=== PATIENT | female | born 1955 | race Caucasian/White ===

== ENCOUNTER → 2024-04-09 15:35 | Outpatient (REF) | payer MEDICARE, SELFPAY | LOC: ANHLAB 15:35 | PROVIDERS: PCP Family Medicine Adolescent Medicine; Visit Provider Plastic Surgery | DX: C44.619 Basal cell carcinoma of skin of left upper limb, including shoulder (principal); L82.1 Other seborrheic keratosis | CPT/HCPCS: 88305 ==

== ENCOUNTER 2025-01-29 08:17 | Outpatient (CLI) | payer MEDICARE, SELFPAY ==
[2025-01-29 09:38] LABS: Hemoglobin A1C 5.1 % (<5.7)
[2025-01-29 09:51] LABS: Alanine Aminotransferase 25 U/L (6-35); Albumin Level 4.2 g/dL (3.5-5.1); Alkaline Phosphatase 56 U/L (38-126); Anion Gap 6 mmol/L (4-12); Aspartate Amino Transferase 26 U/L (14-36); Bilirubin,Total 1.1 mg/dL (0.2-1.3); Blood Urea Nitrogen 11 mg/dL (7-17); Calcium 9.9 mg/dL (8.4-10.2); Carbon Dioxide 29 mmol/L (22-30); Chloride 103 mmol/L (98-107); Cholesterol 158 mg/dL (0-200); Estimated Glomerular Filt Rate > 60; Glucose 97 mg/dL (65-110); HDL Direct 62 mg/dL; Potassium 4.1 mmol/L (3.4-5.0); Sodium 138 mmol/L (137-145); Total Protein 6.8 g/dL (6.3-8.2); Triglycerides 70 mg/dL (<150)
== END 2025-01-29 08:18 | disposition home or self-care (01) ==
LOC: ANHLAB 08:21
PROVIDERS: PCP Family Medicine; Visit Provider Family Medicine
DX: Z13.1 Encounter for screening for diabetes mellitus (principal); E78.00 Pure hypercholesterolemia, unspecified
CPT/HCPCS: 36415; 80053; 80061; 83036